=== PATIENT | female | born 2000 | race African-American/Black ===

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

== ENCOUNTER 2020-11-27 11:37 | Outpatient (CLI) | payer OTHER ==
--- NOTE | 2020-11-27 12:20 | XRay Report ---
CHEST 2 VIEWS INDICATION / CLINICAL INFORMATION: TB TEST. COMPARISON: 06/27/2016 FINDINGS: SUPPORT DEVICES: None. HEART / MEDIASTINUM: No significant abnormality. LUNGS / PLEURA: No significant pulmonary or pleural abnormality. No pneumothorax. ADDITIONAL FINDINGS: No significant additional findings. IMPRESSION: No acute disease or interval change from 06/27/2016. No evidence of active tuberculosis on this exam Signer Name: Rui Gonzalez MD FACR Signed: 11/27/2020 12:16 PM Workstation Name: [employer]
== END 2020-11-27 11:38 | disposition home or self-care (01) ==
LOC: XRAY 11:37
PROVIDERS: ATTEND Internal Medicine Pulmonary Disease
DX: Z00.00 Encounter for general adult medical examination without abnormal findings (principal)
CPT/HCPCS: 71046

== ENCOUNTER 2022-01-01 15:48 | Outpatient (CLI) | payer OTHER ==
--- NOTE | 2022-01-01 16:28 | XRay Report ---
Abdomen 2 views INDICATION: Constipation FINDINGS: Moderate constipation the right colon. No free air is seen. No large stones are seen. Mild curvature of the thoracic spine. No free air is identified. Signer Name: Alejandro Tomlin MD Signed: 01/01/2022 4:23 PM Workstation Name: [id number]
== END 2022-01-01 15:49 | disposition home or self-care (01) ==
LOC: XRAY 15:48
PROVIDERS: ATTEND Surgery
DX: K59.00 Constipation, unspecified (principal); M47.814 Spondylosis without myelopathy or radiculopathy, thoracic region
CPT/HCPCS: 74019